=== PATIENT | female | born 1945 | race Caucasian/White ===

== ENCOUNTER 2019-09-12 10:18 | Outpatient (CLI) | payer MEDICARE, BC ==
--- NOTE | 2019-09-12 12:15 | BD ---
BONE DENSITOMETRY: Date: 09/12/19 HISTORY: Postmenopausal screening. FINDINGS: Lumbar Spine: BMD (g/cm2) L1 1.191 T-Score: 1.8 L2 1.256 T-Score: 2.1 L3 1.300 T-Score: 2.0 L4 1.162 T-Score: 0.9 Total 1.225 T-Score: 1.6 Left Femoral Neck: 0.809 T-Score: -0.4 Total Femur: 0.965 T-Score: 0.2 IMPRESSION: Bone mineral density of the lumbar spine and femoral neck are both within normal range. 10 YEAR FRACTURE RISK: Major osteoporotic fracture: 5.8% Hip fracture: 0.6% POS: TPC
== END 2019-09-12 10:19 | disposition home or self-care (01) ==
LOC: BICMAMMO 10:18
PROVIDERS: ATTEND Internal Medicine Rheumatology
DX: M81.0 Age-related osteoporosis without current pathological fracture (principal)
CPT/HCPCS: 77080

== ENCOUNTER 2019-12-18 11:12 | Outpatient (CLI) | payer MEDICARE, BC ==
--- NOTE | 2019-12-18 11:49 | RAD ---
Left hip:2 views INDICATIONS:Left hip pain COMPARISON:None FINDINGS: Femoral head contour is normal. No evidence of fracture. No soft tissue abnormality. Mild degenerative change. IMPRESSION: Mild degenerative change. No evidence of fracture or acute abnormality.
== END 2019-12-18 11:13 | disposition home or self-care (01) ==
LOC: BICRAD 11:12
PROVIDERS: ATTEND Internal Medicine Rheumatology
DX: M25.552 Pain in left hip (principal); M16.12 Unilateral primary osteoarthritis, left hip

== ENCOUNTER 2021-02-26 09:28 | Outpatient (CLI) | payer MEDICARE, BC | END 2021-02-26 09:29 | disposition home or self-care (01) | LOC: BICMAMMO 09:28 | PROVIDERS: ATTEND Internal Medicine Rheumatology | DX: M81.0 Age-related osteoporosis without current pathological fracture (principal) | CPT/HCPCS: 77080 ==

== ENCOUNTER 2022-06-04 10:13 | Outpatient (CLI) | payer MEDICARE, BC | END 2022-06-04 10:14 | disposition home or self-care (01) | LOC: BICMAMMO 10:13 | PROVIDERS: ATTEND Internal Medicine Rheumatology | DX: Z13.820 Encounter for screening for osteoporosis (principal); Z78.0 Asymptomatic menopausal state | CPT/HCPCS: 77080 ==

== ENCOUNTER 2022-08-25 12:52 | Outpatient (CLI) | payer MEDICARE, BC | END 2022-08-25 12:53 | disposition home or self-care (01) | LOC: BICRAD 12:52 | PROVIDERS: ATTEND Internal Medicine Rheumatology | DX: M17.0 Bilateral primary osteoarthritis of knee (principal) ==

== ENCOUNTER 2023-02-13 18:37 | Emergency (ER) | payer MEDICARE, BC ==
[2023-02-13 20:59] LABS: ALT (SGPT) 26 U/L (8-55); AST (SGOT) 50 U/L (5-34); Albumin 3.8 g/dL (3.4-4.8); Alkaline Phosphatase 277 U/L (40-110); Anion Gap 15 mmol/L (10-20); BUN (Urea Nitrogen) 15 mg/dL (9.8-20.1); Bilirubin, Total 0.8 mg/dL (0.2-1.2); Calc. Creatinine Clearance 0 mL/min (70-130); Calcium 9.9 mg/dL (7.8-10.44); Carbon Dioxide 26 mmol/L (23-31); Chloride 103 mmol/L (98-107); Estimated GFR 75; Globulin 4.4 g/dL (2.4-3.5); Glucose 131 mg/dL (83-110); Potassium 3.9 mmol/L (3.5-5.1); Protein, Total 8.2 g/dL (5.8-8.1); Sodium 140 mmol/L (136-145)
[2023-02-13 21:01] LABS: #Eosinphils 0.1 thou/uL (0.0-0.7); #Lymphocytes 1.5 thou/uL (1.20-3.40); #Monocytes 0.8 thou/uL (0.11-0.59); #Neutrophils 6.1 thou/uL (1.40-6.50); %Basophils 0.3 % (0.0-1.0); %Lymphocytes 17.7 % (21.0-51.0); %Monocytes 9.3 % (0.0-10.0); %Neutrophils 71.7 % (42.0-75.0); Anisocytosis SLIGHT = 6-15 cells (100X) (0-5/hpf); Hemoglobin 13.1 g/dL (12.0-16.0); Large Platelets SLIGHT; MDiff Complete? YES; Mean Corpuscular HGB CONC 34.8 g/dL (32.0-36.0); Mean Corpuscular Hemoglobin 33.5 pg (27.0-31.0); Mean Corpuscular Volume 96.4 fl (78.0-98.0); Mean Platelet Volume 11.4 fL (7.4-10.4); Platelet Clumps SLIGHT; Platelet Morphology Comment Appears Decreased; Polychromasia SLIGHT = 2-3 cells (100X) (0-2/hpf); Red Blood Cell (RBC) Count 3.91 mill/uL (4.20-5.40); Stomatocytes SLIGHT = 2-5 cells (100X) (0-1/hpf); White Blood Cell (WBC) Count 8.5 10x3/uL (4.8-10.8)
[2023-02-13 21:02] LABS: Platelet Count 104 10x3/uL (130-400)
[2023-02-13 21:11] LABS: Bilirubin Negative (Negative); Blood, Urine Negative (Negative); Clarity Clear (Clear); Glucose, Urine (Dipstick) Normal (Negative); Ketone, Urine Negative (Negative); Leukocyte Negative Leu/uL (Negative); Nitrite Negative (Negative); Protein, Urine (Dipstick) Negative (Neg-Trace); Specific Gravity, Urine 1.015 (1.002-1.036); Urobilinogen Normal mg/dL (Less than 2); pH, Urine 7.5 (5.0-9.0)
[2023-02-13] MEDS ORDERED: Ketorolac Tromethamine 30 MG/ML VIAL ONE (21:12)
== END 2023-02-14 00:51 | disposition home or self-care (01) ==
LOC: ERS 18:37
DX: K76.89 Other specified diseases of liver (principal)
CPT/HCPCS: 36415; 74176; 80053; 81003; 83690; 85025; 93005; 96374; J1885

== ENCOUNTER 2024-09-13 08:10 | Outpatient (CLI) | payer MEDICARE | END 2024-09-13 08:11 | disposition home or self-care (01) | LOC: BICMAMMO 08:10 | PROVIDERS: ATTEND Internal Medicine Rheumatology | DX: M81.0 Age-related osteoporosis without current pathological fracture (principal); M85.852 Other specified disorders of bone density and structure, left thigh | CPT/HCPCS: 77080 ==